=== PATIENT | female | born 1950 | race Caucasian/White ===

== ENCOUNTER 2018-02-15 17:04 | Emergency (ER) | payer MEDICARE, OTHER ==
--- NOTE | 2018-02-15 17:31 | EDM.PDOC ---
ED HPI GENERAL MEDICAL PROBLEM - General Chief Complaint: General Stated Complaint: abdominal pain and vomiting Time Seen by Provider: 02/15/18 17:05 Source of Information: Reports: Patient History Limitations: Reports: No Limitations - History of Present Illness INITIAL COMMENTS - FREE TEXT/NARRATIVE: According to patient she was fine until 3Pm today, when she started to have sudden onset of left side abdominal pain. pain was crampy and intermittent. No abdominal bloating. Has been nauseous, and she has had 2 episodes of vomiting. the vomitus contained some bile. No hemetemsis. When she came into emergency room she rated her pain at 10/10, but now is down to 3/10. No fever or chills. Pt claims that she has had loose stools for a long time form her chemotheraphy agent for breast cancer. No dysuria, heart burn or dyspepsia symptoms. Onset: Today Onset Date: 02/15/18 Onset Time: 15:00 Location: Reports: Abdomen Quality: Reports: Ache Severity: Moderate Improves with: Reports: None Worsens with: Reports: None Associated Symptoms: Reports: Nausea/Vomiting, Weakness. Denies: Confusion, Chest Pain, Cough, Diaphoresis, Fever/Chills, Headaches, Rash, Seizure, Shortness of Breath, Syncope - Related Data Allergies Allergy/AdvReac Type Severity Reaction Status Date / Time No Known Allergies Allergy Verified 02/15/18 18:34 Home Meds: Home Meds Aspirin 81 mg PO DAILY 04/21/16 [History] Metoprolol Tartrate 50 mg PO BID 04/21/16 [History] Mv-Mn/FA/Vit K/Lycop/Lut/Zeaxa [Ocuvite Eye + Multi Tablet] 1 each PO DAILY 03/01 [History] Past Medical History Cardiovascular History: Reports: Hypertension Oncologic (Cancer) History: Reports: Breast Social & Family History - Family History Family Medical History: Noncontributory ED ROS GENERAL - Review of Systems Review Of Systems: See Below Constitutional: Denies: Fever, Chills, Malaise, Night Sweats HEENT: Denies: Ear Pain, Rhinitis, Throat Pain Respiratory: Denies: Shortness of Breath, Wheezing, Pleuritic Chest Pain, Cough , Sputum Cardiovascular: Denies: Chest Pain, Lightheadedness GI/Abdominal: Reports: Abdominal Pain, Diarrhea, Nausea, Vomiting. Denies: Bloody Stool, Constipation, Distension, Hematemesis, Hematochezia, Melena : Denies: Dysuria, Flank Pain Musculoskeletal: Denies: Joint Pain, Joint Swelling Skin: Denies: Pruritis, Rash, Erythema Neurological: Denies: Confusion, Dizziness, Headache, Numbness, Tingling, Weakness Psychiatric: Reports: Anxiety. Denies: Agitation ED EXAM, GENERAL - Physical Exam Exam: See Below Exam Limited By: No Limitations General Appearance: Alert, WD/WN, Anxious, Mild Distress Eye Exam: Bilateral Eye: EOMI, PERRL Ears: Normal External Exam, Normal Canal, Hearing Grossly Normal, Normal TMs Ear Exam: Bilateral Ear: Auricle Normal, Canal Normal, TM normal Nose: Normal Inspection, Normal Mucosa, No Blood Throat/Mouth: Normal Inspection, Normal Lips, Normal Teeth, Normal Gums, Normal Oropharynx, Normal Voice, No Airway Compromise Head: Atraumatic, Normocephalic Neck: Normal Inspection, Supple, Non-Tender, Full Range of Motion Respiratory/Chest: No Respiratory Distress, Lungs Clear, Normal Breath Sounds, No Accessory Muscle Use, Chest Non-Tender Cardiovascular: Normal Peripheral Pulses, Regular Rate, Rhythm, No Edema, No Gallop, No JVD, No Murmur, No Rub Peripheral Pulses: 2+: Carotid (L), Carotid (R), Radial (L), Radial (R) GI/Abdominal: Soft, Non-Tender, No Organomegaly, No Distention, No Abnormal Bruit, No Mass, Tender (vague tenderness in the left upper and lower quadrants) , Abnormal Bowel Sounds (hypoactive). No: Distended, Guarding, Rigid, Rebound Back Exam: Normal Inspection, Full Range of Motion, NT Extremities: Normal Inspection, Normal Range of Motion, Non-Tender, Normal Capillary Refill, No Pedal Edema Neurological: Alert, Oriented, CN II-XII Intact, Normal Cognition, Normal Gait, Normal Reflexes, No Motor/Sensory Deficits Psychiatric: Anxious Course - Vital Signs Text/Narrative:: Pt presented to emergency room with sudden onset of left sided abdominal pain with nausea and vomiting. her pain severity was 10/10. but within few minutes her pain was down to 3/10. her CBC,CMP, amylase and lipase are normal. CT abdomen and pelvis with IV contrast was done, which does appear negative for any acute pathology, but it did show dilated left ureter which is consistent with patient's symptoms. On further questioning pt claims the pain came on suddenly and was intense and was radiating from her left back into her groin, which does make sense.Pt was reassured that she has passed a stone,and there are no new stones seen in the kidney. to prevent stone formation, advised to drink 9157-2600 cc of water daily and keep urine dilute. Return if symptoms worsen, otherwise followup with Primary care provider next week. Last Recorded V/S: Last Vital Signs Temp 97 F 02/15/18 18:54 Pulse 73 02/15/18 18:54 Resp 16 02/15/18 18:54 BP 152/74 H 02/15/18 18:54 Pulse Ox 100 02/15/18 18:54 - Orders/Labs/Meds Labs: Laboratory Tests 02/15/18 02/15/18 Range/Units 17:15 17:15 WBC 8.2 D (4.0-11.0) K/uL RBC 4.46 (3.80-5.80) M/uL Hgb 12.9 D (11.5-16.5) g/dL Hct 38.0 D (37.0-47.0) % MCV 85 (76-96) fL MCH 28.9 (27.0-32.0) pg MCHC 33.9 (31.0-35.0) g/dL RDW 13.9 (11.0-16.0) % Plt Count 238 (150-500) K/uL MPV 10.1 H (6.0-10.0) fL Neut % (Auto) 85.2 H (45.0-70.0) % Lymph % (Auto) 10.0 L (20.0-40.0) % Glynn % (Auto) 3.9 (3.0-10.0) % Eos % (Auto) 0.7 L (1.0-5.0) % Baso % (Auto) 0.2 (0.0-0.5) % Neut # (Auto) 7.01 (2.00-7.50) K/uL Lymph # (Auto) 0.82 L (1.50-4.00) K/uL Glynn # (Auto) 0.32 (0.20-0.80) K/uL Eos # (Auto) 0.06 (0.04-0.40) K/uL Baso # (Auto) 0.02 (0.02-0.10) K/uL Sodium 140 (136-145) mmol/L Potassium 3.7 (3.5-5.1) mmol/L Chloride 104 (98-107) mmol/L Carbon Dioxide 22.9 (21.0-32.0) mmol/L Anion Gap 16.8 H (5.0-15.0) mmol/L BUN 25 D (8-26) mg/dL Creatinine 1.13 H D (0.55-1.02) mg/dL Est Cr Clr Drug Dosing TNP Estimated GFR (MDRD) 48 L (>60) MLS/MIN BUN/Creatinine Ratio 22.1 (6-25) Glucose 137 H D (74-100) mg/dL Calcium 9.4 D (8.5-10.1) mg/dL Total Bilirubin 0.7 (0.0-1.0) mg/dL AST 17 (15-37) U/L ALT 22 (12-78) U/L Alkaline Phosphatase 96 (46-116) U/L Total Protein 7.3 (6.4-8.2) g/dL Albumin 3.9 (3.4-5.0) g/dL Globulin 3.4 (2.2-4.2) g/dL Albumin/Globulin Ratio 1.1 (0.8-2.0) Amylase 57 (25-115) U/L Lipase 116 (73-393) U/L Meds: Medications Discontinued Medications Generic Name Dose Route Start Last Admin Trade Name Freq PRN Reason Stop Dose Admin Sodium Chloride 500 mls @ 500 mls/hr 02/15/18 17:44 02/15/18 18:02 Normal Saline IV 02/15/18 18:43 500 mls/hr .BOLUS ONE Administration Departure - Departure Time of Disposition: 19:15 Disposition: Home, Self-Care 01 Condition: Fair Clinical Impression: Ureteric colic - Discharge Information Referrals: PCP,None [Primary Care Provider] - Forms: ED Department Discharge - Problem List & Annotations (1) Ureteric colic SNOMED Code(s): 69333457 Code(s): N23 - UNSPECIFIED RENAL COLIC Status: Acute - Problem List Review Problem List Initiated/Reviewed/Updated: Yes - Assessment/Plan Assessment:: Left ureteric colic Plan: Pt presented to emergency room with sudden onset of left sided abdominal pain with nausea and vomiting. her pain severity was 10/10. but within few minutes her pain was down to 3/10. her CBC,CMP, amylase and lipase are normal. CT abdomen and pelvis with IV contrast was done, which does appear negative for any acute pathology, but it did show dilated left ureter which is consistent with patient's symptoms. On further questioning pt claims the pain came on suddenly and was intense and was radiating from her left back into her groin, which does make sense.Pt was reassured that she has passed a stone,and there are no new stones seen in the kidney. to prevent stone formation, advised to drink [phone] cc of water daily and keep urine dilute. Return if symptoms worsen, otherwise followup with Primary care provider next week.
[2018-02-15] MEDS ORDERED: Sodium Chloride 0.9% 500 ML IV ONE (17:44)
[2018-02-15 18:55] VITALS: BP 152/74
--- NOTE | 2018-02-16 | CT ---
CLINICAL DATA: Left lower quadrant pain. ENHANCED ABDOMEN AND PELVIS CT, 15 FEBRUARY 2018: Multislice acquisition through the abdomen and pelvis with IV, but without oral contrast was performed. No priors. There are mild atelectatic changes in the dependent portion of both lower lungs. There are linear densities in both lung bases, consistent with linear atelectasis or fibrosis. There is a 4 mm nodule in the lingular segment of the left upper lobe. Chest CT is recommended to further evaluate. There is a small hiatal hernia. There is mild diffuse fatty infiltration of the liver. There are multiple sharply transcribed fluid density lesions within the liver. The largest is within the left lobe and measures 11 mm in diameter. They are most likely cysts. The gallbladder appears normal. No biliary duct dilatation. The spleen appears normal. The pancreas appears normal. The right and left adrenals appear normal. There is atrophy of both kidneys. There are fluid density lesions within the renal troy bilaterally, consistent with parapelvic cysts. There is also mild hydronephrosis and hydroureter of the proximal left ureter. No evidence of ureteral calculi. The bladder is fluid-filled and appears normal. The appendix is not clearly seen. No evidence of appendicitis. There is fluid throughout the ascending and transverse colon with scattered air- fluid levels. There are also multiple fluid-filled nondistended loops of small bowel within the abdomen and pelvis that contain air-fluid levels. Enterocolitis should be considered. A developing ileus or obstruction should at least be considered and followup imaging is recommended, if clinically indicated. There is a small umbilical hernia containing fat. No free air. No free fluid. No dilated loops of bowel. No adenopathy. No aortic aneurysm or dissection. IMPRESSION: Abnormal exam. See above. Job: [id number] [facility]
== END 2018-02-15 19:09 | disposition home or self-care (01) ==
LOC: LB.ED 17:04
DX: N23 Unspecified renal colic (principal); I10 Essential (primary) hypertension; Z79.82 Long term (current) use of aspirin
CPT/HCPCS: 36415; 74177; 80053; 82150; 83690; 85025; 96360; 99284; 99284-25; J7040

== ENCOUNTER 2023-04-03 19:16 | Emergency (ER) | payer MEDICARE, OTHER ==
[~2023-04-03 19:16] MED LIST: Sodium Chloride 0.9% 1,000 ML IV ONE
[2023-04-03] MEDS: EPINEPHrine 1:10,000 1 MG/10 ML Syringe IVPUSH PRN ×5 (19:18→19:33)
[2023-04-03] MEDS ORDERED: Sodium Bicarbonate 8.4% 50 MEQ/50 ML Syringe IVPUSH ONE (19:21)
== END 2023-04-03 22:57 | disposition expired ==
LOC: LB.ED 19:16
DX: I46.9 Cardiac arrest, cause unspecified (principal); I10 Essential (primary) hypertension; Z79.82 Long term (current) use of aspirin
CPT/HCPCS: 31500; 92950; 96374; 99285-25; J0171; J7030